=== PATIENT | male | born 1980 ===

== ENCOUNTER 2019-06-18 14:05 | Emergency (ER) | payer OTHER ==
[~2019-06-18] VITALS: Ht 160 cm; Wt 71.7 kg
[2019-06-18 14:46] LABS: PLATELET COUNT 235 K/uL (142-355)
[2019-06-18 15:02] LABS: POTASSIUM 4.9 mmol/L (3.6-5.2)
[2019-06-18 15:11] LABS: PARTIAL THROMBOPLASTIN TIME 24.3 SECONDS (24.5-33.6)
[2019-06-18 16:13] VITALS: BP 144/89; TEMP 98
== END 2019-06-18 16:13 | disposition home or self-care (01) ==
LOC: ED 14:05
PROVIDERS: Family Medicine
DX: N39.0 Urinary tract infection, site not specified (principal); R31.9 Hematuria, unspecified
CPT/HCPCS: 80053; 81000; 82550; 85027; 85610; 85730; 87088; 96372; 99283; J0696